=== PATIENT | female | born 1940 ===

== ENCOUNTER → 2018-09-17 13:59 | Outpatient (REF) | payer OTHER, SELFPAY | LOC: LAB 13:59 | PROVIDERS: Visit Provider Physician Assistant | DX: Z08 Encounter for follow-up examination after completed treatment for malignant neoplasm (principal); Z85.828 Personal history of other malignant neoplasm of skin; Z80.0 Family history of malignant neoplasm of digestive organs; Z09 Encounter for follow-up examination after completed treatment for conditions other than malignant neoplasm; Z87.2 Personal history of diseases of the skin and subcutaneous tissue; R21 Rash and other nonspecific skin eruption; D48.2 Neoplasm of uncertain behavior of peripheral nerves and autonomic nervous system | CPT/HCPCS: 87070; 87102; 87205 ==